=== PATIENT | female | born 1940 | race Caucasian/White ===

== ENCOUNTER 2024-02-01 20:31 | Emergency (ER) | payer MEDICARE ==
[~2024-02-01] VITALS: Ht 154.9 cm; Wt 70.5 kg
[2024-02-01] MEDS ORDERED: ESTR1TAB PO (20:47)
[2024-02-01] MEDS ORDERED: estradiol TD (20:47)
[2024-02-01] MEDS ORDERED: LIPI10TA PO (20:47)
[2024-02-01 21:50] VITALS: BP 134/61
[2024-02-01] MEDS: amLODIPine 5 MG TAB PO ONE (21:50)
[2024-02-01 21:52] LABS: BASO % 0.5 % (0.0-1.0); EOS # 0.1 10^3/uL (0.0-0.5); EOS % 1.4 % (0.0-3.0); HEMATOCRIT 43.6 % (36.0-47.0); HEMOGLOBIN 14.7 g/dl (12.0-15.5); LYMPH % 32.2 % (24.0-44.0); MEAN CORPUSCULAR HEMOGLOBIN 31.5 pg (27.0-33.0); MEAN CORPUSCULAR HGB CONC 33.7 g/dl (32.0-36.5); MEAN CORPUSCULAR VOLUME 93.4 fl (80.0-96.0); MONO # 0.8 10^3/uL (0.0-0.8); MONO % 12.6 % (2.0-8.0); NEUTROPHILS # 3.4 10^3/uL (1.5-8.5); NEUTROPHILS % 53.3 % (36.0-66.0); PLATELET COUNT, AUTOMATED 222 10^3/uL (150-450); RED BLOOD COUNT 4.67 10^6/uL (4.00-5.40); WHITE BLOOD COUNT 6.3 10^3/uL (4.0-10.0)
[2024-02-01 22:24] LABS: C REACTIVE PROTEIN QUANTITATIV < 0.40 MG/DL (<1.0)
[2024-02-01 22:25] LABS: ALBUMIN 3.4 G/DL (3.2-5.2); ALKALINE PHOSPHATASE 121 U/L (46-116); ALT/SGPT 34 U/L (7.0-40); AST/SGOT 35 U/L (<34); BILIRUBIN,TOTAL 0.3 MG/DL (0.3-1.2); BLOOD UREA NITROGEN 13 MG/DL (9-23); CALCIUM LEVEL 8.8 MG/DL (8.3-10.6); CARBON DIOXIDE LEVEL 28 MMOL/L (20-31); CHLORIDE LEVEL 107 MMOL/L (98-107); CREATININE FOR GFR 0.62 MG/DL (0.55-1.30); GLOMERULAR FILTRATION RATE > 60.0 (>32); GLUCOSE, FASTING 102 MG/DL (74-106); MAGNESIUM LEVEL 1.9 MG/DL (1.8-2.4); POTASSIUM SERUM 3.3 MMOL/L (3.5-5.1); SODIUM LEVEL 141 MMOL/L (136-145); TOTAL PROTEIN 6.5 G/DL (5.7-8.2)
[2024-02-01] MEDS: POTASSIUM CHLORIDE 10MEQ SR TABLET PO ONE (22:32)
[2024-02-01] MEDS: NS 1,000 ML IV ONE (22:32)
[2024-02-01 22:33] LABS: PROCALCITONIN <0.04 ng/ml
[2024-02-01] MEDS ORDERED: NIRM1TAB14 PO (23:07)
[2024-02-01 23:15] VITALS: BP 143/63
[2024-02-01 23:16] VITALS: TEMP 98.9; O2SAT 97
== END 2024-02-01 23:25 | disposition home or self-care (01) ==
LOC: M ED 20:31 → EDBD 20:31 → M ED 23:25
DX: U07.1 COVID-19 (principal); E78.5 Hyperlipidemia, unspecified; F10.10 Alcohol abuse, uncomplicated; Z79.02 Long term (current) use of antithrombotics/antiplatelets; Z79.899 Other long term (current) drug therapy